=== PATIENT | female | born 1930 | race Caucasian/White ===

== ENCOUNTER 2017-06-13 12:16 | Emergency (ER) | payer MEDICARE, MEDICAID ==
[~2017-06-13] VITALS: Ht 144.8 cm; Wt 50.0 kg
[2017-06-13 12:49] VITALS: BP 168/46
[2017-06-13 16:11] LABS: CHLORIDE 113 mEq/L (98-107)
[2017-06-13 16:12] LABS: PROTHROMBIN TIME 10.7 sec (9.4-11.6)
[2017-06-13 16:16] LABS: BASOPHILS % 0.7 % (0.0-2.0); EOSINOPHILS % 2.5 % (0.0-5.0); HEMATOCRIT. 31.5 % (36.0-48.0); HEMOGLOBIN. 10.7 g/dL (12.0-16.0); MEAN CORPUSCULAR HEMOGLOBIN 29.9 pg (28.0-32.0); MEAN CORPUSCULAR VOLUME 88.5 fL (81.0-99.0); MEAN PLATELET VOLUME 8.6 fl (7.4-10.4); MONOCYTES % 8.6 % (2.0-8.0); NEUTROPHILS % 74.2 % (40.0-76.0); PLATELET 183 x1000/uL (130-400); RED BLOOD CELL COUNT 3.56 mill/uL (4.2-5.4); RED CELL DISTRIBUTION WIDTH 15.3 % (11.6-14.6)
[2017-06-13 16:17] LABS: CARBON DIOXIDE 23 mEq/L (21-32)
[2017-06-13 18:06] LABS: CLARITY URINE CLEAR (CLEAR); COLOR URINE YELLOW (YELLOW); KETONES URINE NEGATIVE (NEGATIVE); LEUKOCYTE ESTERASE URINE 1+ (NEGATIVE); NITRITE URINE NEGATIVE (NEGATIVE); OCCULT BLOOD URINE 1+ (NEGATIVE); PH URINE 5.5 (4.5-8.0); PROTEIN URINE 3+ (NEGATIVE); SPECIFIC GRAVITY URINE 1.016 (1.005-1.030); UROBILINOGEN URINE 0.2 E.U./dL (0.2-1.0)
== END 2017-06-13 18:57 | disposition left against medical advice (07) ==
LOC: ER 13:35 → CANBEDREQ 20:10
DX: M25.531 Pain in right wrist (principal); N28.9 Disorder of kidney and ureter, unspecified; D64.9 Anemia, unspecified; R00.1 Bradycardia, unspecified; R51 Headache; R42 Dizziness and giddiness; I10 Essential (primary) hypertension; F02.80 Dementia in other diseases classified elsewhere, unspecified severity, without behavioral disturbance, psychotic disturbance, mood disturbance, and anxiety; G30.9 Alzheimer's disease, unspecified; H26.9 Unspecified cataract; M19.90 Unspecified osteoarthritis, unspecified site
CPT/HCPCS: 36415; 73110; 80053; 81001; 84484; 85025; 85610; 93005; 99285

== ENCOUNTER 2017-09-22 11:30 | Inpatient (IN) | payer MEDICARE, MEDICAID ==
[~2017-09-22] VITALS: Ht 149.9 cm; Wt 45.9 kg
[~2017-09-22 11:30] MED LIST: AMLO2.5T45 PO; DOCU-138 PO; DONE5TAB33 PO; FERR325T6 PO; FURO-151 PO; LISI-604 PO; METO-539 PO
[2017-09-22 12:50] LABS: BASOPHILS % 0.7 % (0.0-2.0); EOSINOPHILS % 1.3 % (0.0-5.0); HEMATOCRIT. 29.9 % (36.0-48.0); HEMOGLOBIN. 9.9 g/dL (12.0-16.0); LYMPHOCYTES % 7.9 % (20.0-50.0); MEAN CORPUSCULAR HEMOGLOBIN 29.7 pg (28.0-32.0); MEAN CORPUSCULAR VOLUME 89.4 fL (81.0-99.0); MEAN PLATELET VOLUME 8.2 fl (7.4-10.4); MONOCYTES % 10.1 % (2.0-8.0); PLATELET 229 x1000/uL (130-400); RED BLOOD CELL COUNT 3.35 mill/uL (4.2-5.4); RED CELL DISTRIBUTION WIDTH 15.5 % (11.6-14.6)
[2017-09-22 12:54] LABS: CHLORIDE 108 mEq/L (98-107)
[2017-09-22 12:56] LABS: PARTIAL THROMBOPLASTIN TIME 27.9 sec (23.4-31.0); PROTHROMBIN TIME 10.7 sec (9.4-11.6)
[2017-09-22] MEDS ORDERED: FUROSEMIDE 40MG/4ML VIAL IV ONE (13:30)
[2017-09-22] MEDS ORDERED: ASPIRIN 81MG TABLET PO ONE (13:30)
[2017-09-22] MEDS ORDERED: ACETAMINOPHEN 325MG TABLET PO PRN (13:45)
[2017-09-22] MEDS ORDERED: NA PHOS,M-B/NA PHOS,DI-BA ENEMA 118ML PR PRN (13:45)
[2017-09-22] MEDS ORDERED: HYDROCODONE/ACETAMINOPHEN 5/325MG TABLET PO PRN (13:45)
[2017-09-22] MEDS ORDERED: ENOXAPARIN 40MG/0.4ML SYR SUBCUT SCH (13:45)
[2017-09-22] MEDS ORDERED: HYDROMORPHONE HCL/PF 2MG/ML CPJ IV PRN (13:45)
[2017-09-22] MEDS ORDERED: ONDANSETRON HCL 4MG/2ML VIAL IV PRN (13:45)
[2017-09-22] MEDS ORDERED: MAGNESIUM/ALUMINUM HYDROXIDE/SIMETHICONE 30ML UDC PO PRN (13:45)
[2017-09-22] MEDS ORDERED: DOCUSATE SODIUM 100MG CAPSULE PO PRN (13:45)
[2017-09-22] MEDS ORDERED: IPRATROPIUM/ALBUTEROL 0.5-3(2.5)MG/3ML NEB INH PRN (13:45)
[2017-09-22] MEDS: CLONIDINE 0.1MG TABLET PO PRN ×2 (17:13→22:19)
[2017-09-22 20:30] VITALS: BP_SYST 191; BP_DIAS 78; BP_DIAS 79
[2017-09-22 21:58] LABS: CLARITY URINE CLEAR (CLEAR); COLOR URINE YELLOW (YELLOW); KETONES URINE NEGATIVE (NEGATIVE); LEUKOCYTE ESTERASE URINE 1+ (NEGATIVE); NITRITE URINE NEGATIVE (NEGATIVE); OCCULT BLOOD URINE 1+ (NEGATIVE); PROTEIN URINE 2+ (NEGATIVE); UROBILINOGEN URINE 0.2 E.U./dL (0.2-1.0)
[2017-09-22] MEDS: GUAIFENESIN 600MG ER TABLET PO SCH (22:19)
[2017-09-22 22:21] LABS: BG BASE EXCESS -5.7 mmol/L (-2.0-2.0); BG CARBOXYHEMOGLOBIN 0.3 % (0.5-1.5); BG DEOXYHEMOGLOBIN 6.9 % (0.0-5.0); BG FRACTION INSPIRED OXYGEN 21; BG HCO3 ACT 18.1 mmol/L (22.0-26.0); BG METHEMOGLOBIN 0.2 % (0.0-1.5); BG OXYGEN SATURATION 93.1 % (92.0-98.5); BG OXYHEMOGLOBIN 92.6 % (94.0-97.0); BG PCO2 30.3 mmHg (35.0-45.0); BG PH 7.395 (7.350-7.450); BG PO2 65.8 mmHg (75.0-100.0); BG SAMPLE SITE LEFT RADIAL; BG TOTAL HEMOGLOBIN 11.3 g/dL (12.0-18.0); BG VENT MODE ROOM AIR
[2017-09-22] MEDS: LORAZEPAM 2MG/ML CPJ IV PRN (23:52)
[2017-09-23] VITALS: BP 152/54
[2017-09-23] MEDS: ACETYLCYSTEINE 100MG/ML 10% VIAL 4ML INH SCH ×2 (01:40→20:52)
[2017-09-23] MEDS: IPRATROPIUM/ALBUTEROL 0.5-3(2.5)MG/3ML NEB HHN SCH ×2 (01:46→20:52)
[2017-09-23 04:00] VITALS: BP 137/71
[2017-09-23 06:39] LABS: BASOPHILS % 0.6 % (0.0-2.0); EOSINOPHILS % 1.1 % (0.0-5.0); HEMATOCRIT. 30.8 % (36.0-48.0); HEMOGLOBIN. 10.1 g/dL (12.0-16.0); LYMPHOCYTES % 12.4 % (20.0-50.0); MEAN CORPUSCULAR HEMOGLOBIN 29.3 pg (28.0-32.0); MEAN CORPUSCULAR VOLUME 89.3 fL (81.0-99.0); MEAN PLATELET VOLUME 8.5 fl (7.4-10.4); MONOCYTES % 10.8 % (2.0-8.0); NEUTROPHILS % 75.1 % (40.0-76.0); PLATELET 201 x1000/uL (130-400); RED BLOOD CELL COUNT 3.45 mill/uL (4.2-5.4); RED CELL DISTRIBUTION WIDTH 15.1 % (11.6-14.6)
[2017-09-23 07:11] LABS: CHLORIDE 106 mEq/L (98-107)
[2017-09-23 07:41] LABS: LDL CHOLESTEROL 67 mg/dL (5-100)
[2017-09-23 07:42] LABS: HDL CHOLESTEROL 46 mg/dL (40-59)
[2017-09-23 07:43] LABS: T4 FREE 1.31 ng/dL (0.76-1.46)
[2017-09-23 08:00] VITALS: BP 174/72
[2017-09-23] MEDS: ASPIRIN 81MG EC TABLET PO SCH (08:48)
[2017-09-23] MEDS: FERROUS SULFATE 325MG TABLET PO SCH ×3 (08:49→18:14)
[2017-09-23] MEDS: METOPROLOL TARTRATE 50MG TABLET PO SCH ×2 (08:49→21:10)
[2017-09-23] MEDS: LISINOPRIL 20MG TABLET PO SCH (08:49)
[2017-09-23] MEDS: FUROSEMIDE 40MG/4ML VIAL IV SCH (08:50)
[2017-09-23] MEDS: AMLODIPINE 5MG TABLET PO SCH (08:50)
[2017-09-23] MEDS: GUAIFENESIN 600MG ER TABLET PO SCH ×2 (08:50→21:10)
[2017-09-23] MEDS: ENOXAPARIN 30MG/0.3ML SYR SUBCUT SCH (08:51)
[2017-09-23] MEDS ORDERED: MEDICATION NOT ON FORMULARY EA (Ferrous Sulfate 325 MG) PO SCH (09:00)
[2017-09-23 10:50] LABS: T4 FREE 1.23 ng/dL (0.76-1.46)
[2017-09-23 12:00] VITALS: BP 167/58
[2017-09-23] MEDS: LORAZEPAM 2MG/ML CPJ IV PRN ×2 (14:05→22:13)
[2017-09-23] MEDS: CLONIDINE 0.1MG TABLET PO PRN (14:05)
[2017-09-23 16:00] VITALS: BP 135/51
[2017-09-23 16:31] LABS: CREATINE KINASE 91 IU/L (26-192)
[2017-09-23 16:32] LABS: CREATINE KINASE MB FRACTION 1.5 ng/mL (0.5-3.6)
[2017-09-23 20:00] VITALS: BP 170/66
[2017-09-23] MEDS ORDERED: ACETAMINOPHEN 650MG SUPP PR PRN (23:15)
[2017-09-24] VITALS: BP 166/58
[2017-09-24] MEDS: IPRATROPIUM/ALBUTEROL 0.5-3(2.5)MG/3ML NEB HHN SCH ×5 (01:26→21:32)
[2017-09-24 01:58] LABS: CREATINE KINASE 135 IU/L (26-192)
[2017-09-24 04:00] VITALS: BP 115/91
[2017-09-24 06:14] LABS: BASOPHILS % 0.6 % (0.0-2.0); EOSINOPHILS % 2.3 % (0.0-5.0); HEMATOCRIT. 29.5 % (36.0-48.0); HEMOGLOBIN. 9.7 g/dL (12.0-16.0); LYMPHOCYTES % 13.7 % (20.0-50.0); MEAN CORPUSCULAR HEMOGLOBIN 29.3 pg (28.0-32.0); MEAN CORPUSCULAR VOLUME 89.3 fL (81.0-99.0); MEAN PLATELET VOLUME 8.9 fl (7.4-10.4); MONOCYTES % 12.3 % (2.0-8.0); NEUTROPHILS % 71.1 % (40.0-76.0); PLATELET 195 x1000/uL (130-400); RED BLOOD CELL COUNT 3.31 mill/uL (4.2-5.4)
[2017-09-24 08:00] VITALS: BP 175/79
[2017-09-24 08:17] LABS: CHLORIDE 107 mEq/L (98-107)
[2017-09-24 08:25] LABS: CREATINE KINASE 128 IU/L (26-192)
[2017-09-24 08:27] LABS: CREATINE KINASE MB FRACTION 0.8 ng/mL (0.5-3.6)
[2017-09-24] MEDS ORDERED: LEVOFLOXACIN 500MG PREMIX 100 ML IV SCH (09:00)
[2017-09-24] MEDS: ENOXAPARIN 30MG/0.3ML SYR SUBCUT SCH (09:22)
[2017-09-24] MEDS: ACETYLCYSTEINE 100MG/ML 10% VIAL 4ML INH SCH ×2 (09:22→13:49)
[2017-09-24] MEDS: FUROSEMIDE 40MG/4ML VIAL IV SCH (09:22)
[2017-09-24] MEDS: METOPROLOL TARTRATE 50MG TABLET PO SCH ×2 (09:23→21:25)
[2017-09-24] MEDS: ASPIRIN 81MG EC TABLET PO SCH (09:23)
[2017-09-24] MEDS: FERROUS SULFATE 325MG TABLET PO SCH ×3 (09:23→18:15)
[2017-09-24] MEDS: GUAIFENESIN 600MG ER TABLET PO SCH ×2 (09:23→21:24)
[2017-09-24] MEDS: LISINOPRIL 20MG TABLET PO SCH (09:23)
[2017-09-24] MEDS: AMLODIPINE 5MG TABLET PO SCH (09:24)
[2017-09-24 12:00] VITALS: BP 153/45
[2017-09-24] MEDS: HYDRALAZINE HCL 50MG TABLET PO SCH ×2 (15:25→21:24)
[2017-09-24 16:00] VITALS: BP 144/73
[2017-09-24 20:00] VITALS: BP 152/53
[2017-09-25] VITALS: BP 141/62
[2017-09-25] MEDS: LORAZEPAM 2MG/ML CPJ IV PRN ×2 (00:16→22:38)
[2017-09-25] MEDS: IPRATROPIUM/ALBUTEROL 0.5-3(2.5)MG/3ML NEB HHN SCH ×3 (03:12→20:32)
[2017-09-25 04:00] VITALS: BP 146/57
[2017-09-25] MEDS: GUAIFENESIN 200MG/10ML SUGAR FREE UDC PO PRN ×2 (04:09→11:52)
[2017-09-25] MEDS: DIPHENHYDRAMINE 50MG/ML VIAL IV PRN (05:34)
[2017-09-25] MEDS: HYDRALAZINE HCL 50MG TABLET PO SCH ×3 (05:34→22:38)
[2017-09-25 07:14] LABS: HEMOGLOBIN. 10.5 g/dL (12.0-16.0); MEAN CORPUSCULAR HEMOGLOBIN 29.1 pg (28.0-32.0); MEAN CORPUSCULAR VOLUME 88.3 fL (81.0-99.0); MEAN PLATELET VOLUME 8.6 fl (7.4-10.4); PLATELET 246 x1000/uL (130-400); RED BLOOD CELL COUNT 3.62 mill/uL (4.2-5.4)
[2017-09-25 08:00] VITALS: BP 134/42
[2017-09-25] MEDS: ACETYLCYSTEINE 100MG/ML 10% VIAL 4ML INH SCH ×2 (08:38→17:00)
[2017-09-25] MEDS: ASPIRIN 81MG EC TABLET PO SCH (08:48)
[2017-09-25] MEDS: METOPROLOL TARTRATE 50MG TABLET PO SCH ×2 (08:48→22:38)
[2017-09-25] MEDS: LISINOPRIL 20MG TABLET PO SCH (08:48)
[2017-09-25] MEDS: FERROUS SULFATE 325MG TABLET PO SCH ×3 (08:48→18:05)
[2017-09-25] MEDS: GUAIFENESIN 600MG ER TABLET PO SCH ×2 (08:48→22:37)
[2017-09-25] MEDS: AMLODIPINE 5MG TABLET PO SCH (08:49)
[2017-09-25] MEDS: FUROSEMIDE 20MG/2ML VIAL IVP SCH (08:49)
[2017-09-25] MEDS: ENOXAPARIN 30MG/0.3ML SYR SUBCUT SCH (08:49)
[2017-09-25 12:00] VITALS: BP 143/59
[2017-09-25 16:00] VITALS: BP 134/62
[2017-09-25 20:00] VITALS: BP 153/48
[2017-09-26] VITALS: BP 139/44
[2017-09-26] MEDS: IPRATROPIUM/ALBUTEROL 0.5-3(2.5)MG/3ML NEB HHN SCH ×4 (01:23→21:16)
[2017-09-26 04:00] VITALS: BP 121/64
[2017-09-26] MEDS: HYDRALAZINE HCL 50MG TABLET PO SCH ×3 (06:14→21:09)
[2017-09-26 08:00] VITALS: BP 146/68
[2017-09-26] MEDS: ACETYLCYSTEINE 100MG/ML 10% VIAL 4ML INH SCH ×4 (08:30→21:16)
[2017-09-26] MEDS: FUROSEMIDE 20MG/2ML VIAL IVP SCH (08:31)
[2017-09-26] MEDS: LISINOPRIL 20MG TABLET PO SCH (08:31)
[2017-09-26] MEDS: ASPIRIN 81MG EC TABLET PO SCH (08:31)
[2017-09-26] MEDS: GUAIFENESIN 600MG ER TABLET PO SCH ×2 (08:31→21:01)
[2017-09-26] MEDS: FERROUS SULFATE 325MG TABLET PO SCH ×3 (08:31→16:57)
[2017-09-26] MEDS: AMLODIPINE 5MG TABLET PO SCH (08:31)
[2017-09-26] MEDS: METOPROLOL TARTRATE 50MG TABLET PO SCH ×2 (08:32→21:02)
[2017-09-26] MEDS: ENOXAPARIN 30MG/0.3ML SYR SUBCUT SCH (08:32)
[2017-09-26] MEDS ORDERED: LEVOFLOXACIN 250MG PREMIX 50 ML IV SCH (11:00)
[2017-09-26 12:00] VITALS: BP 93/46
[2017-09-26 14:58] LABS: PLATELET ESTIMATE NORMAL
[2017-09-26 16:00] VITALS: BP 129/45
[2017-09-26] MEDS: LORAZEPAM 2MG/ML CPJ IV PRN ×2 (16:57→21:01)
[2017-09-26 20:00] VITALS: BP 157/50
[2017-09-26] MEDS: DIPHENHYDRAMINE 50MG/ML VIAL IV PRN (22:06)
[2017-09-27] VITALS: BP 131/46
[2017-09-27] MEDS: IPRATROPIUM/ALBUTEROL 0.5-3(2.5)MG/3ML NEB HHN SCH ×2 (01:33→09:59)
[2017-09-27] MEDS: GUAIFENESIN 200MG/10ML SUGAR FREE UDC PO PRN (02:57)
[2017-09-27] MEDS: LORAZEPAM 2MG/ML CPJ IV PRN (02:57)
[2017-09-27 04:00] VITALS: BP 135/60
[2017-09-27] MEDS: HYDRALAZINE HCL 50MG TABLET PO SCH (06:21)
[2017-09-27] MEDS: FUROSEMIDE 20MG/2ML VIAL IVP SCH (09:41)
[2017-09-27] MEDS: FERROUS SULFATE 325MG TABLET PO SCH ×2 (09:41→12:44)
[2017-09-27] MEDS: ENOXAPARIN 30MG/0.3ML SYR SUBCUT SCH (09:41)
[2017-09-27] MEDS: LISINOPRIL 20MG TABLET PO SCH (09:42)
[2017-09-27] MEDS: AMLODIPINE 5MG TABLET PO SCH (09:42)
[2017-09-27] MEDS: ASPIRIN 81MG EC TABLET PO SCH (09:43)
[2017-09-27] MEDS: METOPROLOL TARTRATE 50MG TABLET PO SCH (09:43)
[2017-09-27] MEDS: GUAIFENESIN 600MG ER TABLET PO SCH (09:43)
[2017-09-27 13:21] VITALS: BP 153/75
== END 2017-09-27 13:55 | disposition home or self-care (01) | DRG 133 ==
LOC: ER 11:30 → 5WST 13:34 → EDBEDREQ 13:35 → ENRESERV 19:17 → 5WST 09-26 17:53
PROVIDERS: ADMIT Internal Medicine; ATTEND Internal Medicine
DX: J96.00 Acute respiratory failure, unspecified whether with hypoxia or hypercapnia (principal); J69.0 Pneumonitis due to inhalation of food and vomit; I50.33 Acute on chronic diastolic (congestive) heart failure; E44.0 Moderate protein-calorie malnutrition; I27.21 Secondary pulmonary arterial hypertension; I44.1 Atrioventricular block, second degree; I13.0 Hypertensive heart and chronic kidney disease with heart failure and stage 1 through stage 4 chronic kidney disease, or unspecified chronic kidney disease; I07.1 Rheumatic tricuspid insufficiency; I42.9 Cardiomyopathy, unspecified; D64.9 Anemia, unspecified; E78.5 Hyperlipidemia, unspecified; G30.9 Alzheimer's disease, unspecified; F02.80 Dementia in other diseases classified elsewhere, unspecified severity, without behavioral disturbance, psychotic disturbance, mood disturbance, and anxiety; I25.10 Atherosclerotic heart disease of native coronary artery without angina pectoris; J44.9 Chronic obstructive pulmonary disease, unspecified; M19.90 Unspecified osteoarthritis, unspecified site; Z96.659 Presence of unspecified artificial knee joint; N18.9 Chronic kidney disease, unspecified; Z79.899 Other long term (current) drug therapy; Z95.0 Presence of cardiac pacemaker; Z87.01 Personal history of pneumonia (recurrent); Z68.20 Body mass index [BMI] 20.0-20.9, adult
CPT/HCPCS: 36415; 36600; 71045; 80048; 80053; 80061; 81003; 82375; 82550; 82553; 82805; 83036; 83690; 83880; 84439; 84443; 84484; 85025; 85379; 85610; 85730; 87040; 87086; 93005; 93306; 93970; 94640; 96374; 99285; C1893; J1200; J1650; J1940; J1956; J2060; J7050; J7608; J7620

== ENCOUNTER → 2017-10-27 | Outpatient (CLI) | payer MEDICARE, MEDICAID | END | disposition home or self-care (01) | LOC: RAD 10:29 | PROVIDERS: ATTEND Internal Medicine Cardiovascular Disease | DX: K44.9 Diaphragmatic hernia without obstruction or gangrene (principal); R06.02 Shortness of breath; Z95.0 Presence of cardiac pacemaker | CPT/HCPCS: 71046 ==

== ENCOUNTER 2019-05-14 20:13 | Inpatient (IN) | payer MEDICARE, MEDICAID ==
[~2019-05-14] VITALS: Ht 137.2 cm; Wt 53.5 kg
[2019-05-15] MEDS ORDERED: IPRATROPIUM BROMIDE (0.02%) 0.5MG/2.5ML NEB HHN STA
[2019-05-15] MEDS ORDERED: ALBUTEROL (0.083%) 2.5MG/3ML NEB HHN STA
[2019-05-15 00:28] LABS: BASOPHILS % 1.3 % (0.0-2.0); EOSINOPHILS % 4.4 % (0.0-5.0); HEMATOCRIT. 28.1 % (36.0-48.0); HEMOGLOBIN. 9.2 g/dL (12.0-16.0); LYMPHOCYTES % 12.7 % (20.0-50.0); MEAN CORPUSCULAR HEMOGLOBIN 30.5 pg (28.0-32.0); MEAN CORPUSCULAR VOLUME 93.1 fL (81.0-99.0); MEAN PLATELET VOLUME 9.4 fl (7.4-10.4); MONOCYTES % 7.9 % (2.0-8.0); NEUTROPHILS % 73.7 % (40.0-76.0); PLATELET 173 x1000/uL (130-400); RED BLOOD CELL COUNT 3.02 mill/uL (4.2-5.4); RED CELL DISTRIBUTION WIDTH 15.3 % (11.6-14.6)
[2019-05-15 00:34] LABS: CHLORIDE 118 mEq/L (98-107)
[2019-05-15] MEDS ORDERED: DEXTROSE 50% WATER 50ML SYRINGE IV ONE (01:15)
[2019-05-15] MEDS ORDERED: ALBUTEROL (0.083%) 2.5MG/3ML NEB HHN ONE (01:15)
[2019-05-15] MEDS ORDERED: INSULIN REGULAR (HUMULIN R) 300UNITS/3ML IV ONE (01:15)
[2019-05-15] MEDS ORDERED: SODIUM BICARBONATE 8.4% 1 MEQ/ML 50ML SYR IV ONE (01:15)
[2019-05-15] MEDS: CLONIDINE 0.2MG TABLET PO PRN (07:29)
[2019-05-15 08:54] LABS: CREATINE KINASE 104 IU/L (26-192)
[2019-05-15 09:06] LABS: BG BASE EXCESS -12.3 mmol/L (-2.0-2.0); BG CARBOXYHEMOGLOBIN 0.3 % (0.5-1.5); BG DEOXYHEMOGLOBIN 4.6 % (0.0-5.0); BG FRACTION INSPIRED OXYGEN 21; BG METHEMOGLOBIN 0.3 % (0.0-1.5); BG OXYGEN SATURATION 95.4 % (92.0-98.5); BG OXYHEMOGLOBIN 94.8 % (94.0-97.0); BG PCO2 27.6 mmHg (35.0-45.0); BG PH 7.292 (7.350-7.450); BG PO2 80.8 mmHg (75.0-100.0); BG SAMPLE SITE RIGHT BRACHIAL; BG TOTAL HEMOGLOBIN 8.4 g/dL (12.0-18.0); BG VENT MODE ROOM AIR
[2019-05-15] MEDS: DEXT 5%/0.45% NACL 1000ML 1,000 ML IV SCH (14:17)
[2019-05-15 16:00] VITALS: BP 142/46
[2019-05-15] MEDS ORDERED: ACETAMINOPHEN 325MG TABLET PO PRN (16:45)
[2019-05-15] MEDS ORDERED: GUAIFENESIN 200MG/10ML SUGAR FREE UDC PO PRN (16:45)
[2019-05-15] MEDS ORDERED: DOCUSATE SODIUM 100MG CAPSULE PO PRN (16:45)
[2019-05-15] MEDS ORDERED: IPRATROPIUM/ALBUTEROL 0.5-3(2.5)MG/3ML NEB HHN PRN (16:45)
[2019-05-15 16:49] VITALS: BP 142/46
[2019-05-15] MEDS ORDERED: POTA10CA42 MT (17:09)
[2019-05-15] MEDS ORDERED: CARV3.1242 MT (17:09)
[2019-05-15] MEDS ORDERED: SODIUM POLYSTYRENE SULFONATE 15 G/60 ML BOT PO NR (18:30)
[2019-05-15] MEDS: CITRIC ACID/SODIUM CITRATE SOLN 30ML UDC PO SCH (18:46)
[2019-05-15 20:00] VITALS: BP 149/48
[2019-05-15] MEDS: DONEPEZIL HCL 5MG TABLET PO SCH (20:18)
[2019-05-15] MEDS: HYDROCODONE/ACETAMINOPHEN 5/325MG TABLET PO PRN (20:34)
[2019-05-16] VITALS (7 sets, daily range): BP systolic 136–189; BP diastolic 44–59
[2019-05-16] MEDS: ONDANSETRON HCL 4MG/2ML INJ IV PRN (05:46)
[2019-05-16 07:33] LABS: EOSINOPHILS % 4.6 % (0.0-5.0); HEMATOCRIT. 29.3 % (36.0-48.0); HEMOGLOBIN. 9.5 g/dL (12.0-16.0); LYMPHOCYTES % 9.9 % (20.0-50.0); MEAN CORPUSCULAR HEMOGLOBIN 30.5 pg (28.0-32.0); MEAN CORPUSCULAR VOLUME 93.8 fL (81.0-99.0); MEAN PLATELET VOLUME 9.8 fl (7.4-10.4); MONOCYTES % 4.7 % (2.0-8.0); NEUTROPHILS % 79.8 % (40.0-76.0); PLATELET 188 x1000/uL (130-400); RED BLOOD CELL COUNT 3.12 mill/uL (4.2-5.4); RED CELL DISTRIBUTION WIDTH 15.8 % (11.6-14.6)
[2019-05-16] MEDS: HYDROCODONE/ACETAMINOPHEN 5/325MG TABLET PO PRN ×2 (09:25→18:33)
[2019-05-16] MEDS: CITRIC ACID/SODIUM CITRATE SOLN 30ML UDC PO SCH ×3 (09:29→18:33)
[2019-05-16] MEDS: AMLODIPINE 5MG TABLET PO SCH (09:33)
[2019-05-16] MEDS: CLONIDINE 0.2MG TABLET PO PRN (18:37)
[2019-05-16] MEDS: DONEPEZIL HCL 5MG TABLET PO SCH (21:45)
[2019-05-17] VITALS: BP 120/50
[2019-05-17 04:00] VITALS: BP 155/51
[2019-05-17] MEDS: DEXT 5%/0.45% NACL 1000ML 1,000 ML IV SCH ×2 (05:41→09:14)
[2019-05-17 08:00] VITALS: BP 158/61
[2019-05-17 08:29] LABS: BASOPHILS % 0.6 % (0.0-2.0); EOSINOPHILS % 1.3 % (0.0-5.0); HEMATOCRIT. 25.1 % (36.0-48.0); HEMOGLOBIN. 8.2 g/dL (12.0-16.0); MEAN CORPUSCULAR HEMOGLOBIN 30.6 pg (28.0-32.0); MEAN CORPUSCULAR VOLUME 93.6 fL (81.0-99.0); MONOCYTES % 7.2 % (2.0-8.0); NEUTROPHILS % 80.9 % (40.0-76.0); PLATELET 136 x1000/uL (130-400); RED BLOOD CELL COUNT 2.68 mill/uL (4.2-5.4); RED CELL DISTRIBUTION WIDTH 15.7 % (11.6-14.6)
[2019-05-17] MEDS: AMLODIPINE 5MG TABLET PO SCH (09:14)
[2019-05-17] MEDS: CITRIC ACID/SODIUM CITRATE SOLN 30ML UDC PO SCH ×2 (09:14→16:52)
[2019-05-17 12:00] VITALS: BP 154/52
[2019-05-17 16:00] VITALS: BP 160/49
[2019-05-17] MEDS: CLONIDINE 0.2MG TABLET PO PRN (18:27)
[2019-05-17 20:00] VITALS: BP 150/56
[2019-05-17 20:18] LABS: COLOR URINE YELLOW (YELLOW); KETONES URINE NEGATIVE (NEGATIVE); LEUKOCYTE ESTERASE URINE 3+ (NEGATIVE); NITRITE URINE NEGATIVE (NEGATIVE); OCCULT BLOOD URINE 2+ (NEGATIVE); PH URINE 5.5 (4.5-8.0); PROTEIN URINE 1+ (NEGATIVE); SPECIFIC GRAVITY URINE 1.013 (1.005-1.030); UROBILINOGEN URINE 0.2 E.U./dL (0.2-1.0)
[2019-05-17 20:24] LABS: CLARITY URINE HAZY (CLEAR)
[2019-05-17] MEDS: DONEPEZIL HCL 5MG TABLET PO SCH (21:06)
[2019-05-18] VITALS: BP 150/92
[2019-05-18] MEDS: CLONIDINE 0.2MG TABLET PO PRN ×2 (01:44→08:54)
[2019-05-18 04:00] VITALS: BP 166/58
[2019-05-18] MEDS: CLONIDINE 0.1MG TABLET PO PRN (04:09)
[2019-05-18 08:00] VITALS: BP 178/60
[2019-05-18] MEDS: CITRIC ACID/SODIUM CITRATE SOLN 30ML UDC PO SCH ×3 (08:53→19:38)
[2019-05-18] MEDS: AMLODIPINE 5MG TABLET PO SCH (08:53)
[2019-05-18] MEDS: ONDANSETRON HCL 4MG/2ML INJ IV PRN (09:56)
[2019-05-18 10:35] LABS: EOSINOPHILS % 3.6 % (0.0-5.0); HEMOGLOBIN. 8.6 g/dL (12.0-16.0); LYMPHOCYTES % 10.8 % (20.0-50.0); MEAN CORPUSCULAR HEMOGLOBIN 30.6 pg (28.0-32.0); MEAN CORPUSCULAR VOLUME 92.3 fL (81.0-99.0); MEAN PLATELET VOLUME 9.7 fl (7.4-10.4); MONOCYTES % 8.9 % (2.0-8.0); NEUTROPHILS % 75.7 % (40.0-76.0); PLATELET 140 x1000/uL (130-400); RED BLOOD CELL COUNT 2.81 mill/uL (4.2-5.4); RED CELL DISTRIBUTION WIDTH 14.9 % (11.6-14.6)
[2019-05-18 12:00] VITALS: BP 148/89
[2019-05-18] MEDS: CEFTRIAXONE 1 G PREMIX 50 ML IV SCH (15:46)
[2019-05-18 16:00] VITALS: BP 149/68
[2019-05-18 20:00] VITALS: BP 156/53
[2019-05-18] MEDS: DONEPEZIL HCL 5MG TABLET PO SCH (21:36)
[2019-05-19] VITALS (7 sets, daily range): BP systolic 127–192; BP diastolic 47–73
[2019-05-19 07:53] LABS: BASOPHILS % 0.9 % (0.0-2.0); EOSINOPHILS % 3.4 % (0.0-5.0); HEMATOCRIT. 28.8 % (36.0-48.0); HEMOGLOBIN. 9.5 g/dL (12.0-16.0); MEAN CORPUSCULAR HEMOGLOBIN 30.4 pg (28.0-32.0); MEAN CORPUSCULAR VOLUME 91.9 fL (81.0-99.0); MEAN PLATELET VOLUME 9.8 fl (7.4-10.4); MONOCYTES % 5.3 % (2.0-8.0); NEUTROPHILS % 81.4 % (40.0-76.0); PLATELET 175 x1000/uL (130-400); RED BLOOD CELL COUNT 3.13 mill/uL (4.2-5.4); RED CELL DISTRIBUTION WIDTH 14.8 % (11.6-14.6)
[2019-05-19] MEDS: CITRIC ACID/SODIUM CITRATE SOLN 30ML UDC PO SCH ×3 (08:43→16:37)
[2019-05-19] MEDS: CLONIDINE 0.2MG TABLET PO PRN ×2 (08:44→16:43)
[2019-05-19] MEDS: AMLODIPINE 5MG TABLET PO SCH (08:44)
[2019-05-19] MEDS: CEFTRIAXONE 1 G PREMIX 50 ML IV SCH (09:05)
[2019-05-19] MEDS: CLONIDINE 0.1MG TABLET PO PRN ×2 (13:22→19:42)
[2019-05-19] MEDS: DONEPEZIL HCL 5MG TABLET PO SCH (19:42)
[2019-05-20] VITALS (7 sets, daily range): BP systolic 150–198; BP diastolic 59–76
[2019-05-20] MEDS: CLONIDINE 0.2MG TABLET PO PRN ×2 (02:08→09:14)
[2019-05-20 08:24] LABS: BASOPHILS % 1.2 % (0.0-2.0); HEMATOCRIT. 28.4 % (36.0-48.0); HEMOGLOBIN. 9.3 g/dL (12.0-16.0); LYMPHOCYTES % 13.9 % (20.0-50.0); MEAN CORPUSCULAR HEMOGLOBIN 30.2 pg (28.0-32.0); MEAN CORPUSCULAR VOLUME 92.5 fL (81.0-99.0); MEAN PLATELET VOLUME 9.6 fl (7.4-10.4); MONOCYTES % 8.3 % (2.0-8.0); NEUTROPHILS % 71.6 % (40.0-76.0); PLATELET 156 x1000/uL (130-400); RED BLOOD CELL COUNT 3.07 mill/uL (4.2-5.4); RED CELL DISTRIBUTION WIDTH 14.8 % (11.6-14.6)
[2019-05-20] MEDS: CITRIC ACID/SODIUM CITRATE SOLN 30ML UDC PO SCH ×3 (09:14→17:42)
[2019-05-20] MEDS: CEFTRIAXONE 1 G PREMIX 50 ML IV SCH (09:14)
[2019-05-20] MEDS: AMLODIPINE 5MG TABLET PO SCH (09:15)
[2019-05-20] MEDS: HYDROCODONE/ACETAMINOPHEN 5/325MG TABLET PO PRN ×2 (09:16→13:33)
[2019-05-20] MEDS ORDERED: AMLO10TA80 MT ×2 (15:15→15:58)
[2019-05-20] MEDS ORDERED: AMLODIPINE 5MG TABLET PO SCH (15:30)
[2019-05-20] MEDS ORDERED: CARVEDILOL 3.125 MG TABLET PO NR (15:30)
[2019-05-20] MEDS ORDERED: FURO-152 MT (15:58)
== END 2019-05-20 20:58 | disposition home or self-care (01) | DRG 194 ==
LOC: ER 20:13 → 7WST 05-15 01:26 → EDBEDREQTM 05-15 01:33 → EDBEDREQ 05-15 01:33 → ENRESERV 05-15 14:56 → 7WST 05-18 16:00
PROVIDERS: ADMIT Internal Medicine; ATTEND Internal Medicine
DX: I13.0 Hypertensive heart and chronic kidney disease with heart failure and stage 1 through stage 4 chronic kidney disease, or unspecified chronic kidney disease (principal); J96.00 Acute respiratory failure, unspecified whether with hypoxia or hypercapnia; N17.0 Acute kidney failure with tubular necrosis; I50.33 Acute on chronic diastolic (congestive) heart failure; E87.2 Acidosis; E83.51 Hypocalcemia; D63.8 Anemia in other chronic diseases classified elsewhere; Z96.653 Presence of artificial knee joint, bilateral; G43.909 Migraine, unspecified, not intractable, without status migrainosus; K59.00 Constipation, unspecified; E87.5 Hyperkalemia; E78.5 Hyperlipidemia, unspecified; F03.90 Unspecified dementia, unspecified severity, without behavioral disturbance, psychotic disturbance, mood disturbance, and anxiety; N18.9 Chronic kidney disease, unspecified; Z95.0 Presence of cardiac pacemaker; Z79.899 Other long term (current) drug therapy
CPT/HCPCS: 36415; 36600; 71045; 76770; 80048; 80053; 81003; 82375; 82550; 82728; 82805; 82962; 83540; 83550; 83605; 83735; 83880; 84100; 84132; 84484; 85025; 93005; 94640; 96361; 96374; 96375; 99291; J0696; J1815; J2405; J3490; J7040